=== PATIENT | female | born 1990 | race Caucasian/White ===

== ENCOUNTER → 2017-01-22 | Outpatient (CLI) | payer BC ==
[2017-01-22 13:26] LABS: Non-African American GFR(MDRD) >60 (>60 ml/min/1.73 sqM)
== END | disposition home or self-care (01) ==
LOC: LABWHC1 12:59
PROVIDERS: ATTEND Family Medicine
DX: Z13.9 Encounter for screening, unspecified (principal)
CPT/HCPCS: 36415; 82565

== ENCOUNTER → 2017-02-20 | Outpatient (CLI) | payer BC ==
--- NOTE | 2017-02-20 11:13 | MR ---
EXAMINATION TYPE: MR brain wo/w con DATE OF EXAM: 02/20/2017 COMPARISON: NONE HISTORY: Migraine without aura, not intractable TECHNIQUE: Multiplanar, multisequence images of the brain and brainstem is performed without and with IV contras t, utilizing 7.5 mL intravenous Gadavist . FINDINGS: Diffusion weighted images demonstrate no evidence of a recent infarct or other diffusion ab normality. There is no extra-axial fluid collection or significant white matter signal abnormality. Only one small focus of hyperintensity present in the right frontal white matter of questionable clin ical significance. The ventricular system and cisternal spaces are normal in size and appearance. Th e brain volume is age appropriate. Midline structures demonstrate normal morphology except a pineal gland cyst. The craniocervical junc tion appears within normal limits. Post contrast images demonstrate no abnormal enhancement. The dur al venous sinuses appear patent. The visualized sinuses are remarkable for inflammatory change in the maxillary sinus left greater than right, sphenoid sinus, ethmoid air cells and the globes are intact . IMPRESSION: Sinus disease. Additional nonspecific findings questionable clinical significance. Follow -up as indicated.
== END | disposition home or self-care (01) ==
LOC: RADMRIMAIN 09:13
PROVIDERS: ATTEND Family Medicine
DX: G43.909 Migraine, unspecified, not intractable, without status migrainosus (principal)
CPT/HCPCS: 70553; A9581

== ENCOUNTER → 2023-03-26 | Outpatient (CLI) | payer BC ==
--- NOTE | 2023-03-26 12:50 | CA ---
Stress Echo Report Sarah Senior Age: 33 Gender: F : 1990 Exam Date: 03/26/2023 10:12 Exam Location: [facility] Ht (in): 64 Wt (lb): 220 Ordering Physician: Usman Cruz MD ([id number]) Referring Physician: Nancy KHAN Hot Repairman: YASIR, Technologist Procedure CPT: Indication: R07.89 other chest pain ICD-9 Codes: Rhythm: Patient History: Chest pain and shortness of breath. Cardiac Medications: Medications in past 24 hours: Contrast: Stress Results Protocol: Jayden Total dose(mL): Exercise Duration (min:sec): Max ST Depression (mm): Angina Score: Talley Score: METS: 9.1 Resting HR: 73 Resting BP: 123 / 85 Peak HR: 185 Peak BP: 146 / 76 Max Predicted HR: 186 99 % Max Predicted HR Target HR: 158 Double Product: [id number] Stress Summary: BP Response: Normal Reason for Termination: Reached target heart rate or work-load Cardiac Symptoms: No symptoms ECG Analysis Resting ECG: Normal sinus rhythm, normal ECG Stress ECG: No abnormal ST/T wave changes with exercise Arrhythmia: None Echo Analysis Resting Echo: Normal resting echocardiogram. Peak Echo Analysis: Normal wall thickening and motion MEASUREMENTS (Male/Female) Normal Values CONCLUSIONS 1. Average exercise tolerance with normal electrocardiographic response to exercise 2. Normal stress echocardiogram with no evidence of stress induced ischemia Dr. Berny Will MD (Electronically Signed) Final Date: 26 March 2023 12:50
== END | disposition home or self-care (01) ==
LOC: RADNMMAIN 09:54
PROVIDERS: ATTEND Internal Medicine Cardiovascular Disease
DX: R93.1 Abnormal findings on diagnostic imaging of heart and coronary circulation (principal); R07.89 Other chest pain
CPT/HCPCS: 93351

== ENCOUNTER → 2024-01-26 | Outpatient (CLI) | payer BC ==
--- NOTE | 2024-01-27 11:12 | MM ---
Reason for Exam: Screening (asymptomatic). Baseline mammogram. Patient History: Menarche at age 9. Patient has no children. Premenopausal. Paternal grandmother had breast cancer at or over age 50. Last menstrual period: 01/18/2024 Risk Values: Mary 5 year model risk: 0.4%. NCI Lifetime model risk: 12.4%. Prior Study Comparison: Patient's first Mammogram. Tissue Density: The breasts are almost entirely fatty. Findings: Analyzed By CAD. There is no suspicious group of microcalcifications or new suspicious mass in either breast. Overall Assessment: Negative, BI-RAD 1 Management: Screening Mammogram of both breasts in 1 year. . Patient should continue monthly self-breast exams. A clinical breast exam by your physician is recommended on an annual basis. This exam should not preclude additional follow-up of suspicious palpable abnormalities. Note on Mary scores and lifetime risk: 1. A Mary score greater than 3% is considered moderate risk. If this is the case, consider specialist referral to assess eligibility for a risk reducing agent. 2. If overall lifetime risk for the development of breast cancer is 20% or higher, the patient may qualify for future screening with alternating mammogram and breast MRI. [facility], , 01/27/2024 11:09 AM. Electronically signed and approved by: Eliel Munson M.D. Radiologis
== END | disposition home or self-care (01) ==
LOC: RADMAMWWP 07:20
PROVIDERS: ATTEND Obstetrics & Gynecology
CPT/HCPCS: 77063; 77067